=== PATIENT | female | born 1970 | race Caucasian/White ===

== ENCOUNTER 2018-03-05 11:07 | Emergency (ER) | payer MEDICAID, OTHER ==
[~2018-03-05] VITALS: Ht 165.1 cm; Wt 105.0 kg
[~2018-03-05 11:07] MED LIST: ATAZ1TAB PO; CLIN150 PO; GLIM2TAB PO; GLUCTAB PO; LISI-360 PO; OMEP20TA PO; PRAV40 PO; TRUVTAB2 PO
[2018-03-05 11:08] VITALS: BP 148/73; PULSE 83; RESP 16; TEMP 98.5; O2SAT 97
--- NOTE | 2018-03-05 11:26 | PD ---
HPI Chief Complaint: Skin Problem Time Seen by Provider: 11:14 Travel History International Travel<30 days: No Contact w/Intl Traveler<30days: No Traveled to known affect area: No History of Present Illness HPI Patient comes [facility] complaining of painful lump left posterior neck that she woke with 4 days ago. Patient complaining of pressure-like pain over the site without radiation. Patient reports having similar before on her arms that had to be cut open. Patient has been applying warm compresses and applying drawing salve with some improvement of symptoms. Patient denies any known drainage, fevers, or weight loss. Touching it makes pain worse. Reports blood sugars running around 100. PFSH Past Medical History High Cholesterol: Yes Diabetes: Yes Patient Takes Glucophage: No Diminished Hearing: No GERD: Yes Hypertension: Yes Immune Disorder: Yes (HIV) Triglycerides - High: Yes Influenza Vaccination: No ?: Not LMP: 01/31/2018-IRREGULAR Past Surgical History Cholecystectomy: Yes Social History Alcohol Use: No Tobacco Use: Yes (1 pk every 3 days) Substance Use: No Allergies-Medications (Allergen,Severity, Reaction): Coded Allergies: No Known Allergies (Verified Adverse Reaction, Unknown, 03/05/18) Reported Meds & Prescriptions Reported Meds & Active Scripts Active Bactrim DS (Sulfamethoxazole-Trimethoprim) 800-160 Mg Tab 1 Tab PO BID Keflex (Cephalexin) 500 Mg Cap 500 Mg PO Q8H Reported Atorvastatin (Atorvastatin Calcium) 40 Mg Tab 40 Mg PO HS Stribild (Ogxddrmusoqv-Knpjomrbdv-Cmnpvbmjrmqy-Tenofvir) [phone] Mg Tab 1 Tab PO DAILY With food Evotaz (Atazanavir-Cobicistat) 300-150 Mg Tab 1 Tab PO DAILY Omeprazole 20 Mg Tab 20 Mg PO DAILY Glimepiride 2 Mg Tab 2 Mg PO DAILY Take with breakfast or first main meal Lisinopril 20 Mg Tab 20 Mg PO DAILY Review of Systems Except as stated in HPI: all other systems reviewed are Neg Physical Exam Narrative GENERAL: Well-developed, over the nourished, in no acute distress, and non-ill appearing. SKIN: Area of induration on the left posterior neck is nontender palpation. No drainage, crepitus, or fluctuation noted. Is mildly erythematous. HEAD: Atraumatic. Normocephalic. EYES: Pupils equal and round. EOMI. No scleral icterus. No injection or drainage. ENT: No nasal bleeding or discharge. Mucous membranes pink and moist. NECK: Trachea midline. Supple. No nuclear rigidity. No cervical lymphadenopathy. RESPIRATORY: No accessory muscle use. No respiratory distress. MUSCULOSKELETAL: No obvious deformities. No clubbing. No cyanosis. No edema. Full range of motion. NEUROLOGICAL: Awake and alert. No obvious cranial nerve deficits. Motor grossly within normal limits. Normal speech. PSYCHIATRIC: Appropriate mood and affect; insight and judgment normal. Data Data Last Documented VS Vital Signs Date Time Temp Pulse Resp B/P (MAP) Pulse Ox O2 Delivery O2 Flow Rate FiO2 03/05/18 12:07 84 18 114/67 (83) 95 03/05/18 11:08 98.5 Orders Orders Ed Discharge Order (03/05/18 11:22) Clindamycin Inj (Cleocin Inj) (03/05/18 11:30) MDM Medical Decision Making Medical Screen Exam Complete: Yes Emergency Medical Condition: Yes Differential Diagnosis Abscess, cellulitis, furuncle, carbuncle Narrative Course The patient has no evidence of obvious abscess at this time. The patient will be discharged on antibiotics for cellulitis with possible early/immature abscess. Clinical suspicion, diagnosis and care management was discussed. The patient was given signs and symptoms warnings for worsening infection, such as spreading of redness, increasing pain, and/or swelling, associated heat, pus or fever and instructed to return immediately if these signs or symptoms worsen. The patient is to return in 2 days for recheck for maturity. Sooner if worsens or as needed. The patient agrees with plan. Patient in no obvious distress upon re-evaluation. Patient was asked if they wanted to speak to my attending, which the patient did not wish to do at this time. Any questions/concerns in reference to patient diagnosis/condition discussed and clarified prior to patient's discharge. Reinforced sheer importance of close follow up with patient's primary physician or primary care clinic or return here in 2 days for recheck. Instructed patient to return to ED immediately, if symptoms return/worsen. Patient showed understanding of above instructions. Further instructions and recommendations were detailed in discharge paperwork. Patient ambulated without difficulty out of ED at discharge. Diagnosis Primary Impression: Cellulitis Qualified Codes: L03.221 - Cellulitis of neck Patient Instructions: Cellulitis (ED), General Instructions Additional Instructions: Follow-up with your primary care physician or return here in 2 days for recheck. Take all medication as prescribed. Continue using warm compresses. Return to the emergency department sooner if symptoms get worse. Med/Other Pt SpecificInfo: Prescription(s) given Scripts Sulfamethoxazole-Trimethoprim (Bactrim DS) 800-160 Mg Tab 1 TAB PO BID for Infection, #20 TAB 0 Refills Prov: Glenn Benedict MD 03/05/18 Cephalexin (Keflex) 500 Mg Cap 500 MG PO Q8H for Infection, #30 CAP 0 Refills Prov: Glenn Benedict MD 03/05/18 Disposition: 01 DISCHARGE HOME Condition: Stable Shady Reynoso Mar 05, 2018 11:26
[2018-03-05] MEDS ORDERED: OMEP20TA93 PO (11:27)
[2018-03-05] MEDS ORDERED: ATAZ1TAB PO (11:27)
[2018-03-05] MEDS ORDERED: GLIM2TAB PO (11:27)
[2018-03-05] MEDS ORDERED: ATOR40TA16 PO (11:27)
[2018-03-05] MEDS ORDERED: ELVITAB PO (11:27)
[2018-03-05] MEDS ORDERED: LISI-515 PO (11:27)
[2018-03-05] MEDS ORDERED: CEPH-460 PO (11:29)
[2018-03-05] MEDS ORDERED: BACT800T5 PO (11:29)
[2018-03-05] MEDS ORDERED: CLINDAMYCIN PHOS 600 MG/4 ML VIAL IM ONE (11:30)
[2018-03-05 12:07] VITALS: BP 114/67
== END 2018-03-05 12:08 | disposition home or self-care (01) ==
LOC: PHEFT 11:07
DX: L03.221 Cellulitis of neck (principal); E78.00 Pure hypercholesterolemia, unspecified; E11.9 Type 2 diabetes mellitus without complications; K21.9 Gastro-esophageal reflux disease without esophagitis; I10 Essential (primary) hypertension; Z21 Asymptomatic human immunodeficiency virus [HIV] infection status; E78.1 Pure hyperglyceridemia; F17.200 Nicotine dependence, unspecified, uncomplicated; Z79.899 Other long term (current) drug therapy
CPT/HCPCS: 96372